=== PATIENT | male | born 1965 | race Two or more races ===

== ENCOUNTER 2025-09-18 12:15 | Inpatient (IN) | payer MEDICARE, MEDICAID ==
[~2025-09-18] VITALS: Ht 177.8 cm; Wt 110.7 kg
--- NOTE | 2025-09-18 13:16 | ECG ---
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
--- NOTE | 2025-09-18 13:48 | ED.PDOC ---
SOB-HPI HPI Comments This is a 59 year old male presenting to the ED with chief complaint of SOB. Patient reports that he has been experiencing SOB with associated palpitations this morning while getting dressed. Patient relays that he has never had this feeling before. Patient denies any chest pain, dizziness, extremity swelling, N/V, cough, or fever. Chief Complaint: Shortness of Breath Time Seen by MD: 13:47 Reviewed notes: Nurses Notes, Medications, Allergies Information Source: Patient, Spouse Mode of Arrival: Ambulatory Severity: Moderate Timing: Hours Duration: Since onset Context: At Rest PE Risk Factors: None History of: None Prehospital treatment: None Modifying Factors: Nothing Associated Signs and Symptoms: None Past Medical History PAST MEDICAL HISTORY: Denies Surgical History: Denies all surgeries Family History Family History: Reviewed,noncontributory to illness Social History Smoker: Non-Smoker Alcohol: Denies ETOH Use Drugs: Denies Drug Use Lives In: Home Constitutional: denies: chills, diaphoresis, fatigue, fever, malaise, sweats, weakness, others EENTM: denies: blurred vision, double vision, ear bleeding, ear discharge, ear drainage, ear pain, ear ringing, eye pain, eye redness, hearing loss, mouth pain, mouth swelling, nasal discharge, nose bleeding, nose congestion, nose pain, photophobia, tearing, throat pain, throat swelling, voice changes, others Respiratory: reports: shortness of breath; denies: cough, hemoptysis, orthopnea, SOB at rest, SOB with excertion, stridor, wheezing, others Cardiovascular: reports: palpitations; denies: chest pain, dizzy spells, diaphoresis, Dyspnea on exertion, edema, irregular heart beat, left arm pain, lightheadedness, PND, syncope, others Gastrointestinal: denies: abdomen distended, abdominal pain, blood streaked bowels, constipated, diarrhea, dysphagia, difficulty swallowing, hematemesis, melena, nausea, poor appetite, poor fluid intake, rectal bleeding, rectal pain, vomiting, others Genitourinary: denies: burning, dysuria, flank pain, frequency, hematuria, incontinence, penile discharge, penile sore, pain, testicle pain, testicle swelling, urgency, others Neurological: denies: dizziness, fainting, headache, left sided numbness, left sided weakness, numbness, paresthesia, pre-existing deficit, right sided numbness, right sided weakness, seizure, speech problems, tingling, tremors, weakness, others Musculoskeletal: denies: back pain, gout, joint pain, joint swelling, muscle pain, muscle stiffness, neck pain, others Integumetry: denies: bruises, change in color, change in hair/nails, dryness, laceration, lesions, lumps, rash, wounds, others Allergic/Immunocompromised: denies: Difficulty Healing, Frequent Infections, Hives, Itching, others Hematologic/Lymphatic: denies: anemia, blood clots, easy bleeding, easy bruising, swollen glands, others Endocrine: denies: excessive hunger, excessive sweating, excessive thirst, excessive urination, flushing, intolerance to cold, intolerance to heat, unexplained weight gain, unexplained weight loss, others Psychiatric: denies: anxiety, bipolar disorder, depression, hopeless, panic disorder, schizophrenia, sleepless, suicidal, others All Other Systems: Reviewed and Negative Physical Exam General Appearance: No Apparent Distress, Normal HEENT: Normal ENT Inspection, Pharynx Normal, TMs Normal Neck: Full Range of Motion, Non-Tender, Normal, Normal Inspection Respiratory: Chest Non-Tender, Lungs Clear, No Accessory Muscle Use, No Respiratory Distress, Normal Breath Sounds Cardiovascular: No Edema, No JVD, No Murmur, No Gallop, Normal Peripheral Pulses, Regular Rate/Rhythm Breast Exam: Deferred Gastrointestinal: No Organomegaly, Non Tender, No Pulsatile Mass, Normal Bowel Sounds, Soft Genitalia: Deferred Pelvic: Deferred Rectal: Deferred Extremities: No calf tenderness, Normal capillary refill, Normal inspection, Normal range of motion, Non-tender, No pedal edema Musculoskeletal : Apperance: Normal Neurologic: Alert, gambling monitor II-XII nml as Tested, No Motor Deficits, Normal Affect, Normal Mood, No Sensory Deficits Cerebellar Function: Normal Reflexes: Normal Skin: Dry, Normal Color, Warm Lymphatic: No Adenopathy EKG EKG : Pulse Rate (adult): 80 [place]: Normal Cardiac Rhythm: PAC's Block: None Hypertrophy: None ST: Normal Was a procedure done? Was a procedure done?: No Differential Dx Differential Diagnosis: Myocardial infarction, PSVT X-Ray, Labs, Meds, VS Vital Signs Date Time Temp Pulse Resp B/P (MAP) Pulse Ox O2 Delivery O2 Flow Rate FiO2 09/18/25 14:46 77 16 98 Room Air* 0 21 09/18/25 14:45 98.0 78 16 150/82 (104) 96 98.0 09/18/25 12:39 80 09/18/25 12:20 97.8 85 20 160/78 95 97.8 Lab Test 09/18/25 15:13 09/18/25 14:09 Range/Units Total Bilirubin Pending Direct Bilirubin Pending Aspartate Amino Transferase (AST) Pending Alanine Aminotransferase (ALT) Pending Alkaline Phosphatase Pending Troponin I High Sensitivity 183 *H 212 *H </=54 ng/L Total Protein Pending Albumin Pending White Blood Count 10.2 4.4-10.8 10^3/uL Red Blood Count 5.67 4.5-5.90 10^6/uL Hemoglobin 15.5 13.5-17.5 g/dL Hematocrit 45.9 41.0-53.0 % Mean Corpuscular Volume 81.0 80.0-100.0 fL Mean Corpuscular Hemoglobin 27.3 L 28.0-32.0 pg Mean Corpuscular Hemoglobin Concent 33.6 32.0-36.0 g/dL Red Cell Distribution Width 17.4 H 11.8-14.3 % Platelet Count 175 140-450 10^3/uL Mean Platelet Volume 6.7 L 6.9-10.8 fL Neutrophils (%) (Auto) 76.7 37.0-80.0 % Lymphocytes (%) (Auto) 10.9 10.0-50.0 % Monocytes (%) (Auto) 11.5 0.0-12.0 % Eosinophils (%) (Auto) 0.2 0.0-7.0 % Basophils (%) (Auto) 0.7 0.0-2.0 % Neutrophils # (Auto) 7.8 1.6-8.6 10 ^3/uL Lymphocytes # (Auto) 1.1 0.4-5.4 10 ^3/uL Monocytes # (Auto) 1.2 0-1.3 10 ^3/uL Eosinophils # (Auto) 0 0-0.8 10 ^3/uL Basophils # (Auto) 0.1 0-0.2 10 ^3/uL Nucleated Red Blood Cells 0.0 % D-Dimer, Quantitative 28.17 H 0.0-0.49 mg/L FEU Sodium Level 142 136-145 mmol/L Potassium Level 4.0 3.5-5.1 mmol/L Chloride Level 103 98-107 mmol/L Carbon Dioxide Level 29 20-31 mmol/L Anion Gap 10 5-15 Blood Urea Nitrogen 15 9-23 mg/dL Creatinine 1.32 H 0.700-1.30 mg/dL Glomerular Filtration Rate Calc 62 >90 mL/min BUN/Creatinine Ratio 11.4 10.0-20.0 Serum Glucose 122 H 74-106 mg/dL Calcium Level 9.9 8.7-10.4 mg/dL B-Type Natriuretic Peptide 23.51 0-100 pg/mL Time of 1ST Reevaluation: 14:46 Reevaluation 1ST: Unchanged Patient Education/Counseling: Diagnosis, Treatment Family Education/Counseling: Diagnosis, Treatment SEPSIS Sepsis Screen Date sepsis recognized/suspect: Sep 18, 2025 Time Sepsis recognized/suspect: 1220 Recent Procedure: No On Antibiotic Therapy: No Respiratory Rate >20: No Heart Rate >90: No Temp<36 C (96.8 F) or >38.3 C: No SBP <90 or MAP <65 mmHG: No New Acute Mental Status Change: No Is the patient on CPAP, BIPAP,: No Physician Orders Electrocardigram (09/18/25 14:14) Electrocardigram (09/18/25 16:14) Chest Xray 1 View (09/18/25 13:42) Troponin-I Hs (09/18/25 15:54) Vital Signs Date Time Temp Pulse Resp B/P (MAP) Pulse Ox O2 Delivery O2 Flow Rate FiO2 09/18/25 14:46 77 16 98 Room Air* 0 21 09/18/25 14:45 98.0 78 16 150/82 (104) 96 98.0 09/18/25 12:39 80 09/18/25 12:20 97.8 85 20 160/78 95 97.8 Laboratory Tests Test 09/18/25 14:09 White Blood Count 10.2 10^3/uL (4.4-10.8) Departure 1 Departure Time of Disposition: 17:00 (This is a 59 year old male presenting to the ED with chief complaint of SOB. Patient denying any current chest pain. Initial EKG does show sinus rhythm, however, has some PACs, could have been the cause of his palpitations. Your possible ACS, however, no chest pain. Patient's high sensitivity troponin is elevated in the 200s, has a heart score of 4. Repeat troponin is stable, downtrending. Patient reporting shortness of breath, however, denies any increased lower extremity edema or orthopnea, BNP is within normal limits. Chest x-ray with no evidence of any increased pulmonary vascular congestion. Does not seem consistent with new onset heart failure. Shortness of breath and positive troponin is screening D-dimer was obtained which came back positive. Patient's duplex ultrasound shows that he has a popliteal DVT. CT angiography has also been ordered to further evaluate to see if he has pu lmonary embolism causing his shortness of breath. In admitted for further workup and management of DVT.) Impression: Primary Impression: Palpitations Additional Impressions: Elevated troponin I level Shortness of breath PAC (premature atrial contraction) Deep venous thrombosis of left popliteal vein Disposition: ADMITTED INPATIENT Condition: Fair Critical Care Note Critical Care Time?: No Stability Stability form required: No Heart Score Heart Score: Heart Score Response (Comments) Value History Moderate Suspicious 1 EKG Normal 0 Age 45-64 1 Risk Factors No known risk factors 0 Troponin >3 x's Normal limit 2 Total 4 I personally scribed for MADHU FERRERA MD ([email or web address]) on 09/18/25 at 13:48. Electronically submitted by [place] ([email or web address]). MADHU FERRERA MD Sep 18, 2025 13:48
--- NOTE | 2025-09-18 14:10 | DVH ---
CHEST RADIOGRAPH Indication: SOB/Palpitations Technique: Single frontal view of the chest was obtained Comparison: None FINDINGS: Lines and Tubes: None Lungs: No focal consolidation. Pleura: No effusion. No pneumothorax. Cardiomediastinal contours: Unremarkable Bones: No acute osseous abnormality. IMPRESSION: No acute cardiopulmonary disease.
[2025-09-18 14:18] LABS: Hematocrit 45.9 % (41.0-53.0); Hemoglobin 15.5 g/dL (13.5-17.5); Mean Corpuscular Hemoglobin 27.3 pg (28.0-32.0); Mean Corpuscular Volume 81.0 fL (80.0-100.0); Nucleated Red Blood Cells % 0.0 %
[2025-09-18 14:28] LABS: Chloride 103 mmol/L (98-107); Potassium 4.0 mmol/L (3.5-5.1); Sodium 142 mmol/L (136-145)
[2025-09-18 14:29] LABS: Anion Gap 10 (5-15); Carbon Dioxide 29 mmol/L (20-31)
[2025-09-18 14:30] LABS: Calcium 9.9 mg/dL (8.7-10.4)
[2025-09-18 14:34] LABS: BUN/Creatinine Ratio 11.4 (10.0-20.0); Blood Urea Nitrogen 15 mg/dL (9-23)
[2025-09-18 14:37] LABS: Glucose 122 mg/dL (74-106)
[2025-09-18 14:46] VITALS: PULSE 77; RESP 16; O2SAT 98
[2025-09-18] MEDS ORDERED: MORPHINE SULFATE INJ 2 MG/ml SYRG IV PRN (16:30)
[2025-09-18] MEDS ORDERED: ENOXAPARIN SOD 40 MG/0.4 ML SYRINGE SC ONE (16:30)
[2025-09-18] MEDS ORDERED: DEXTROSE (50%) 50ML SYRG IV PRN (16:30)
[2025-09-18] MEDS ORDERED: IPRATROPIUM BROM 0.5 MG/2.5ML INH SOL NEB PRN (16:30)
[2025-09-18] MEDS ORDERED: LEVALBUTEROL HCL 1.25 MG/3 ML NEB NEB PRN (16:30)
[2025-09-18] MEDS ORDERED: NITROGLYCERIN 0.4 MG SL TAB SL PRN (16:30)
--- NOTE | 2025-09-18 17:10 | DVHHPRES ---
History of Present Illness Resident Creating Document: SIN BUCKLEY RESIDENT History of Present Illness Patient is a 59-year-old male with a past medical history of hypertension, peripheral artery disease, obstructive sleep apnea on CPAP, legally blind, peripheral neuropathy, insulin-dependent type 2 diabetes mellitus, herpes presented to the ED with a chief complaint of 1 day of sudden onset shortness of breath. Patient reported since the morning today he has had 3-4 episodes of sudden onset shortness of breath where he feels not able to take deep breath, denied cough/phlegm, fever or chills, no recent sick contacts, but reported had associated palpitations during the episodes of shortness of Breath, and also mucus coming up occasionally which is chronic, no change in the color or smell of the sputum. Patient denied any previous episode of shortness of Breath or history of asthma or COPD or congestive heart failure. Patient denied any chest pain. He has also apparently well until yesterday and was able to walk on the treadmill for an hour at 2.5 mph. Since the patient has been in the hospital he reports some improvement would feel short of breath while walking. Denies any lower extremity pain. Past Medical History As per HPI Family History Right eye surgery Past Social History Denies smoking, occasional alcohol, denies any drug use Review of Systems Review of Systems Denies fever, chills, headache No shortness a breath while resting on room air Denies chest pain, palpitations Allergies: Coded Allergies: NO KNOWN ALLERGIES (Unverified , 09/18/25) Medications Current Medications Medications Dose Ordered Sig/Antonio Route Start Time Stop Time Status Last Admin Dose Admin Nitroglycerin 0.4 mg Q5MINP PRN SL 09/18/25 16:30 UNV Morphine Sulfate 2 mg Q30M PRN IV 09/18/25 16:30 UNV Levalbuterol HCl 0.625 mg Q6HP PRN NEB 09/18/25 16:30 UNV Ipratropium [place] 0.5 mg Q6HPRN PRN NEB 09/18/25 16:30 UNV Aspirin 81 mg DAILY PO 09/19/25 10:00 UNV Pentoxifylline 400 mg TID PO 09/18/25 22:00 UNV Lisinopril 30 mg DAILY PO 09/19/25 10:00 UNV Hydrochlorothiazide 25 mg DAILY PO 09/19/25 10:00 UNV Amlodipine Besylate 5 mg HS PO 09/18/25 22:00 UNV Metoprolol Tartrate 12.5 mg BID PO 09/18/25 22:00 UNV Diagnostic Test (Pha) 1 strip ACHS 09/18/25 17:00 UNV Insulin Human Regular ACHS SC 09/18/25 17:00 UNV Dextrose 50 ml UD PRN IV 09/18/25 16:30 UNV Enoxaparin Sodium 40 mg DAILY SC 09/19/25 10:00 UNV Atorvastatin Calcium 40 mg HS PO 09/18/25 22:00 UNV Exam Vital Signs Vital Signs Date Time Temp Pulse Resp B/P (MAP) Pulse Ox O2 Delivery O2 Flow Rate FiO2 09/18/25 14:46 77 16 98 Room Air* 0 21 09/18/25 14:45 98.0 150/82 (104) 98.0 Exam Skin - Patients skin is warm and dry. HEENT - normocephalic, atraumatic, moist mucous membranes. Neck - full ROM, no LAD, no JVD Pulmonary - B/L clear breath sounds without any wheezing or rales cardiovascular - regular S1,S2 heard, no added sounds, no murmurs heard. peripheral pulses normal radial 2+, pedal 1+. GI - soft, obese abdomen. Bowel sounds normoactive Neurological - Patient is A/O X 4 . Bilateral upper extremity strength 5/5, bilateral lower extremity strength 5/5, no facial droop, normal speech, no tremor, no sensory deficiets, legally blind Extremities: Bilateral 1+ edema Labs/Xrays Labs Test 09/18/25 15:13 09/18/25 14:09 Range/Units Troponin I High Sensitivity 183 *H </=54 ng/L White Blood Count 10.2 4.4-10.8 10^3/uL Red Blood Count 5.67 4.5-5.90 10^6/uL Hemoglobin 15.5 13.5-17.5 g/dL Hematocrit 45.9 41.0-53.0 % Mean Corpuscular Volume 81.0 80.0-100.0 fL Mean Corpuscular Hemoglobin 27.3 L 28.0-32.0 pg Mean Corpuscular Hemoglobin Concent 33.6 32.0-36.0 g/dL Red Cell Distribution Width 17.4 H 11.8-14.3 % Platelet Count 175 140-450 10^3/uL Mean Platelet Volume 6.7 L 6.9-10.8 fL Neutrophils (%) (Auto) 76.7 37.0-80.0 % Lymphocytes (%) (Auto) 10.9 10.0-50.0 % Monocytes (%) (Auto) 11.5 0.0-12.0 % Eosinophils (%) (Auto) 0.2 0.0-7.0 % Basophils (%) (Auto) 0.7 0.0-2.0 % Neutrophils # (Auto) 7.8 1.6-8.6 10 ^3/uL Lymphocytes # (Auto) 1.1 0.4-5.4 10 ^3/uL Monocytes # (Auto) 1.2 0-1.3 10 ^3/uL Eosinophils # (Auto) 0 0-0.8 10 ^3/uL Basophils # (Auto) 0.1 0-0.2 10 ^3/uL Nucleated Red Blood Cells 0.0 % Sodium Level 142 136-145 mmol/L Potassium Level 4.0 3.5-5.1 mmol/L Chloride Level 103 98-107 mmol/L Carbon Dioxide Level 29 20-31 mmol/L Anion Gap 10 5-15 Blood Urea Nitrogen 15 9-23 mg/dL Creatinine 1.32 H 0.700-1.30 mg/dL Glomerular Filtration Rate Calc 62 >90 mL/min BUN/Creatinine Ratio 11.4 10.0-20.0 Serum Glucose 122 H 74-106 mg/dL Calcium Level 9.9 8.7-10.4 mg/dL B-Type Natriuretic Peptide 23.51 0-100 pg/mL SEPSIS Sepsis Screen Date sepsis recognized/suspect: Sep 18, 2025 Time Sepsis recognized/suspect: 1220 Recent Procedure: No On Antibiotic Therapy: No Respiratory Rate >20: No Heart Rate >90: No Temp<36 C (96.8 F) or >38.3 C: No SBP <90 or MAP <65 mmHG: No New Acute Mental Status Change: No Is the patient on CPAP, BIPAP,: No Physician Orders Electrocardigram (09/18/25 14:14) Electrocardigram (09/18/25 16:14) Chest Xray 1 View (09/18/25 13:42) Troponin-I Hs (09/18/25 15:54) Admit (09/18/25 16:18) Nitroglycerin Sublingual (Ntrostat Subli (09/18/25 16:30) Morphine Sulfate Injection (09/18/25 16:30) Oxygen By Nasal Cannula (09/18/25 16:18) Stat Ekg For Chest Pain (09/18/25 16:18) Notify Of Changes From Base (09/18/25 16:18) Senior Sales Associate For 24 Hours (09/18/25 16:18) Emergency Dysrhythmia Protocol (09/18/25 16:18) Rapid Influenza A&B (09/18/25 16:18) Covid19 Antigen Stacey (09/18/25 ) Hepatic Panel (09/18/25 16:18) D-Dimer (09/18/25 16:18) Bilat Lower Dvt (09/18/25 16:18) Levalbuterol Hcl (Xopenex Medneb) (09/18/25 16:30) Ipratropium Medneb (Atrovent Medneb) (09/18/25 16:30) Aspirin Tablet (09/19/25 10:00) Echo 2d Mode Cardiac Dop (09/18/25 16:18) Urinalysis (09/18/25 16:18) Drug Screen (09/18/25 16:18) Pentoxifylline Er Tablet (Trental Er Tab (09/18/25 22:00) Lisinopril Tablet (Zestril Tablet) (09/19/25 10:00) Hydrochlorothiazide Tablet (Hydrochlorot (09/19/25 10:00) Amlodipine Tablet (Norvasc Tablet) (09/18/25 22:00) Metoprolol Tartrate Tablet (Lopressor Ta (09/18/25 22:00) Urine Protein/Creatinine Ratio (09/18/25 ) Urine Sodium (09/18/25 16:18) Glucose Blood (Accu-Chek Comfort Curve T (09/18/25 17:00) Insulin R (Human) (Insulin R) (09/18/25 17:00) Dextrose 50% Syringe (09/18/25 16:30) Cardiac Diet-2gna,Lofat,Lochol (09/18/25 Dinner) [facility]Diabetes (09/18/25 Dinner) Enoxaparin Sodium (Lovenox) (09/19/25 10:00) Enoxaparin Sodium (Lovenox) (09/18/25 16:30) Atorvastatin (Lipitor) (09/18/25 22:00) Vital Signs Date Time Temp Pulse Resp B/P (MAP) Pulse Ox O2 Delivery O2 Flow Rate FiO2 09/18/25 14:46 77 16 98 Room Air* 0 21 09/18/25 14:45 98.0 78 16 150/82 (104) 96 98.0 09/18/25 12:39 80 09/18/25 12:20 97.8 85 20 160/78 95 97.8 Laboratory Tests Test 09/18/25 14:09 White Blood Count 10.2 10^3/uL (4.4-10.8) Assessment/Plan Assessment/Plan Shortness of breath likely due to suspected PE Obstructive sleep apnea Right main Pulmonary artery embolism - COVID and influenza pending - chest x-ray shows no acute pulmonary edema - wells score 3, elevated D-dimer - CT angio chest showed right main pulmonary artery PE extending through right lobar artery - started on heparin drip - IR consulted NSTEMI likely type 2 from demand ischemia Hypertensive heart disease with a possible heart failure H/o Peripheral artery disease - 12 lead EKG showed T-wave inversions in inferolateral leads, PAC - continue on antihypertensive medications including lisinopril, amlodipine, hydrochlorothiazide - troponins trended down - echocardiogram pending - continue pentoxifylline for peripheral artery disease Insulin dependent Type 2 diabetes mellitus - sliding insulin scale MI on CKD likely due to VMN - urine studies pending - likely CKD as patient reports GFR around 60 DVT prophylaxis: Lovenox Goals of care discussed with the patient and his for over 19 minutes. Full code Time spent: 36 minutes Plan discussed with Dr. Rosado Plan discussed with: Patient, Spouse My Orders Orders - SIN BUCKLEY RESIDENT Procedure Category Date Status Time Admit ADMIT 09/18/25 Transmitted 16:18 Nitroglycerin PHA 09/18/25 Logged Sublingual (Ntrostat 16:30 Morphine Sulfate PHA 09/18/25 Logged Injection 16:30 Oxygen By Nasal RT 09/18/25 Transmitted Cannula 16:18 Stat Ekg For Chest SHARA 09/18/25 In Process Pain 16:18 Notify Of Changes [facility] 09/18/25 In Process From Base 16:18 Senior Sales Associate For [facility] 09/18/25 In Process 24 Hours 16:18 Emergency Dysrhythmia [facility] 09/18/25 In Process Protocol 16:18 Rapid Influenza A&B LAB 09/18/25 Logged 16:18 Covid19 Antigen [place] LAB 09/18/25 Logged Hepatic Panel LAB 09/18/25 In Process 16:18 D-Dimer LAB 09/18/25 In Process 16:18 Bilat Lower Dvt US 09/18/25 Logged 16:18 Levalbuterol Hcl PHA 09/18/25 Logged (Xopenex Medneb) 16:30 Ipratropium Medneb PHA 09/18/25 Logged (Atrovent Medneb) 16:30 Aspirin Tablet PHA 09/19/25 Logged 10:00 Echo 2d Mode Cardiac US 09/18/25 Logged DOP 16:18 Urinalysis LAB 09/18/25 Logged 16:18 Drug Screen LAB 09/18/25 Logged 16:18 Pentoxifylline Er PHA 09/18/25 Logged Tablet (Trental Er Tab 22:00 Lisinopril Tablet PHA 09/19/25 Logged (Zestril Tablet) 10:00 Hydrochlorothiazide PHA 09/19/25 Logged Tablet (Hydrochlorot 10:00 Amlodipine Tablet PHA 09/18/25 Logged (Norvasc Tablet) 22:00 Metoprolol Tartrate PHA 09/18/25 Logged Tablet (Lopressor Ta 22:00 Urine LAB 09/18/25 Logged Protein/Creatinine Urine Sodium LAB 09/18/25 Logged 16:18 Glucose Blood PHA 09/18/25 Logged (Accu-Chek Comfort 17:00 Insulin R (Human) PHA 09/18/25 Logged (Insulin R) 17:00 Dextrose 50% Syringe PHA 09/18/25 Logged 16:30 Cardiac DIET 09/18/25 Transmitted Diet-2gna,Lofat,Lochol Dinner Consistent DIET 09/18/25 Transmitted Carb(Ccho)Diabetes Dinner Enoxaparin Sodium PHA 09/19/25 Logged (Lovenox) 10:00 Enoxaparin Sodium PHA 09/18/25 Logged (Lovenox) 16:30 Atorvastatin (Lipitor) PHA 09/18/25 Logged 22:00 Date of Service: Sep 18, 2025 Billing Provider: CLAUDY ROSADO MD Common Visit Codes: 42794-[id number] INP/OBS CARE (HIGH) Secondary Visit Codes: [id number] CARE PLAN 30 MINUTES SIN BUCKLEY RESIDENT Sep 18, 2025 17:10 CLAUDY ROSADO MD Sep 18, 2025 22:33
[2025-09-18 17:56] LABS: Alkaline Phosphatase 107.0 U/L (46-116); Total Protein 7.6 g/dL (5.7-8.2)
[2025-09-18 17:57] LABS: Albumin 4.8 g/dL (3.2-4.8); Bilirubin, Direct 0.2 mg/dL (<0.3); Bilirubin, Total 0.8 mg/dL (0.2-1.0)
--- NOTE | 2025-09-18 18:09 | DVH ---
Technique: Real-time ultrasound imaging, with color Doppler and compression of the bilateral common femoral vein, femoral vein, greater saphenous vein, and popliteal vein. Indication: lower ext swelling L>R Comparison: None Findings: In the left lower extremity, the left common femoral superficial femoral veins demonstrate color flow and compressibility. The left popliteal vein is noncompressible and contains occlusive thrombus. There is normal compressibility and flow augmentation in all of the right lower extremity imaged deep veins. There are no filling defects in the right lower extremity. Impression: Occlusive deep vein thrombosis within the left popliteal vein. Findings were communicated to Dr. Vallejo by the scanning technologist at 5:57 p.m.
[2025-09-18 18:54] LABS: Alanine Aminotransferase 44.0 U/L (7-40)
--- NOTE | 2025-09-18 18:58 | DVH ---
EXAM: CT CT ANGIO CHEST CONTRAST HISTORY: Wells score 3, SOB, highd-dim, NSTEMI , suspicous for PE TECHNIQUE: CT angiogram was performed. CT scans at this facility use dose modulation, iterative reconstruction, and/or weight based dosing when appropriate to reduce radiation dose to as low as reasonably achievable. Coronal and sagittal reformations and maximum intensity projection images were created from the transaxial source data by the certified nuclear medicine technologist and workstation, as well as 3-D volume rendered images with MIPs. COMPARISON: XY CHEST XRAY 1 VIEW on DOS: 09/18/25 FINDINGS: [LOWER NECK]: Unremarkable [LYMPH NODES/MEDIASTINUM]: No abnormal lymph nodes by CT size criteria [CARDIOVASCULAR]: Normal cardiac size. No pericardial effusion. No aneurysmal dilatation of the great vessels. Coronary artery calcifications. [PULMONARY ARTERIES]: Pulmonary emboli involving the right distal main pulmonary artery extending through the right interlobar artery. Propagating through the right posterior segmental to subsegmental pulmonary arteries. Additional involvement of the left upper apical segmental artery and likely subsegmental arteries. Additional involvement of the left lower lobe segmental to subsegmental pulmonary arteries. Normal caliber of the main pulmonary artery. No evidence of elevated right heart pressures. no ventricular heart strain [UPPER ABDOMEN]: Unremarkable. [MUSCULOSKELETAL]: No acute fracture or aggressive focal osseous lesion. Multilevel degenerative change of the visualized spine. [CHEST WALL]: Unremarkable. [LUNG PARENCHYMA/PLEURAL SPACE]: No consolidation, suspicious focal airspace opacity, or suspicious nodules. No pleural effusion or pneumothorax. IMPRESSION: 1. Bilateral pulmonary emboli with involvement of the right distal main pulmonary artery extending through the right interlobar artery. 2. No evidence of elevated right heart pressures.
[2025-09-18 19:00] VITALS: O2SAT 95
[2025-09-18] MEDS: IOHEXOL 350 MG/ML 100ML IJ ONE (19:16)
[2025-09-18 19:47] LABS: Hematocrit 47.3 % (41.0-53.0); Hemoglobin 15.9 g/dL (13.5-17.5); Mean Corpuscular Hemoglobin 27.3 pg (28.0-32.0); Mean Corpuscular Volume 81.5 fL (80.0-100.0); Nucleated Red Blood Cells % 0.2 %
[2025-09-18 19:53] LABS: INR 0.97 (0.9-1.15); Partial Thromboplastin Time 26.5 SEC (24.5-34.5); Prothrombin Time 10.3 sec (9.3-11.8)
[2025-09-18 20:16] VITALS: PULSE 88; RESP 15; O2SAT 93
[2025-09-18 20:30] VITALS: BP 158/85; PULSE 97; RESP 16; TEMP 97.9; O2SAT 95
[2025-09-18] MEDS: ACCU-CHEK COMFORT CURVE STRIP VI SCH (20:30)
[2025-09-18] MEDS: InsuLIN REG 1unit/0.01ml Soln (100units/ml) SC SCH (20:37)
[2025-09-18] MEDS: FUROSEMIDE 40 MG/4 ML VIAL IV ONE (20:46)
[2025-09-18 21:19] LABS: COVID19 ANTIGEN SOFIA FIA NEGATIVE (NEGATIVE)
[2025-09-18] MEDS: HEPARIN SODIUM (PORCINE) 5000 UNITS/ML 1ML VIAL IV ONE (21:21)
[2025-09-18] MEDS: HEPARIN DRIP/D5W 100UNITS/ML 250 ML IV SCH (21:30)
[2025-09-18] MEDS: ATORVASTATIN 20 MG TAB PO SCH (21:59)
[2025-09-18] MEDS ORDERED: METOPROLOL TARTRATE 25 MG TAB PO SCH (22:00)
[2025-09-18] MEDS: PENTOXIFYLLINE 400 MG ER TAB PO SCH (22:00)
[2025-09-19] VITALS (11 sets, daily range): BP systolic 106–148; BP diastolic 64–81; PULSE 57–97; RESP 15–18; TEMP 97.4–98.1; O2SAT 95–100
[2025-09-19] MEDS ORDERED: AMLO1TAB23 PO (00:48)
[2025-09-19] MEDS ORDERED: ASPI-543 PO (00:48)
[2025-09-19] MEDS ORDERED: LISI40TA16 PO (00:48)
[2025-09-19] MEDS ORDERED: HYDR25TA5 PO (00:48)
[2025-09-19] MEDS ORDERED: MET25T PO (00:48)
[2025-09-19] MEDS ORDERED: ATOR40TA52 PO (00:48)
[2025-09-19] MEDS ORDERED: ACYC1TAB2 PO (00:48)
[2025-09-19 04:59] LABS: Hematocrit 40.8 % (41.0-53.0); Hemoglobin 13.6 g/dL (13.5-17.5); Mean Corpuscular Hemoglobin 26.9 pg (28.0-32.0); Mean Corpuscular Volume 80.5 fL (80.0-100.0); Nucleated Red Blood Cells % 0.1 %
[2025-09-19 05:10] LABS: Chloride 101 mmol/L (98-107); Potassium 3.9 mmol/L (3.5-5.1)
[2025-09-19 05:11] LABS: Anion Gap 9 (5-15); Carbon Dioxide 26 mmol/L (20-31)
[2025-09-19 05:12] LABS: Calcium 9.3 mg/dL (8.7-10.4)
[2025-09-19 05:17] LABS: BUN/Creatinine Ratio 16.3 (10.0-20.0); Blood Urea Nitrogen 20 mg/dL (9-23)
[2025-09-19 05:18] LABS: Glucose 189 mg/dL (74-106); Sodium 136 mmol/L (136-145)
[2025-09-19 05:33] LABS: Prothrombin Time 11.6 sec (9.3-11.8)
[2025-09-19 05:34] LABS: INR 1.11 (0.9-1.15)
[2025-09-19 05:36] LABS: Partial Thromboplastin Time > 139.0 SEC (24.5-34.5)
[2025-09-19] MEDS: HEPARIN DRIP/D5W 100UNITS/ML 250 ML IV SCH ×2 (06:50→15:52)
[2025-09-19 07:52] LABS: Protein, Urine 6.3 mg/dL (1-14)
[2025-09-19 08:00] LABS: Amphetamine Screen, Urine Neg (NEGATIVE); Barbiturate Scree,Urine Neg (NEGATIVE); Benzodiazephine Screen, Urine Neg (NEGATIVE); Cannabinoid Screen, Urine Neg (NEGATIVE); Cocaine Screen, Urine Neg (NEGATIVE); Opiate Scree,Urine Neg (NEGATIVE); Phencyclidine Screen, Urine Neg (NEGATIVE)
[2025-09-19 08:12] LABS: Urine Protein, UAD Negative (Negative)
[2025-09-19] MEDS: LISINOPRIL 20 MG TAB PO SCH (09:29)
[2025-09-19] MEDS: hydroCHLOROthiazide 25 MG TAB PO SCH (09:29)
[2025-09-19] MEDS ORDERED: ENOXAPARIN SOD 40 MG/0.4 ML SYRINGE SC SCH (10:00)
--- NOTE | 2025-09-19 10:52 | DVHINCON2 ---
Date Seen: Sep 19, 2025 Referring Physician MD Kip Reason for Consultation NSTEMI History of Present Illness This is a 59-year-old man who presented to the emergency room with a chief complaint of shortness of breath. The patient reports he experienced a sudden onset of shortness of breath associated with some palpitations while he was getting dressed yesterday morning. Denies chest pain, dizziness, or syncopal events. Has been diagnosed with a left lower extremity DVT and right-sided PE. States he walks on a treadmill for approximately an hour on daily basis but sits the rest of the day as his blindness limits his amount of activity. Denies recent travel by car or airplane. Denies history of smoking cigarettes. Denies a previous history of blood clots. Significant medical history includes hypertension, dyslipidemia, peripheral arterial disease, obstructive sleep apnea on CPAP HS, peripheral neuropathy, insulin-dependent diabetes mellitus, herpes, legally blindness, and obesity. Past Medical History Past medical history reviewed. No other significant than mentioned above. Past Surgical History Right eye Family History: Patient reports no known family medical history. Family History Family history reviewed. Social History Denies the use of illicit drugs, alcohol, or tobacco use. Allergies: Coded Allergies: NO KNOWN ALLERGIES (Unverified , 09/18/25) Home Meds Reported Medications Aspirin (Aspir-Low) 81 Mg Tab, 81 MG PO DAILY for 30 Days, MG 09/19/25 Metoprolol Tartrate (Lopressor) 25 Mg Tb, 1 TAB PO DAILY 09/19/25 Hctz (Hydrochlorothiazide) 25 Mg Tab, 1 TAB PO DAILY 09/19/25 Atorvastatin Calcium (ATORVASTATIN CALCIUM) 40 Mg Tab, 1 TAB PO DAILY 09/19/25 Lisinopril (Lisinopril) 40 Mg Tab, 1 TAB PO DAILY 09/19/25 Amlodipine Besylate (Amlodipine Besylate) 10 Mg Tab, 1 TAB PO DAILY 09/19/25 Acyclovir (Acyclovir) 400 Mg Tab, 1 TAB PO TID 09/19/25 Home Meds Home medications reviewed. Current Medications Current Medications Medications (Trade) Dose Ordered Sig/Antonio Route PRN Reason Start Time Stop Time Status Last Admin Nitroglycerin (Ntrostat Sublingual) 0.4 mg Q5MINP PRN SL FOR CHEST PAIN 09/18/25 16:30 Morphine Sulfate 2 mg Q30M PRN IV FOR CHEST PAIN 09/18/25 16:30 Levalbuterol HCl (Xopenex Medneb) 0.625 mg Q6HP PRN NEB SHORTNESS OF BREATH 09/18/25 16:30 Ipratropium [place] (Atrovent Medneb) 0.5 mg Q6HPRN PRN NEB SHORTNESS OF BREATH 09/18/25 16:30 Aspirin 81 mg DAILY PO 09/19/25 10:00 09/19/25 09:29 Pentoxifylline (TRENtal ER Tablet) 400 mg TID PO 09/18/25 22:00 09/19/25 05:57 Lisinopril (Zestril Tablet) 30 mg DAILY PO 09/19/25 10:00 09/19/25 09:29 Hydrochlorothiazide (hydroCHLOROthiazide TABLET) 25 mg DAILY PO 09/19/25 10:00 09/19/25 09:29 Amlodipine Besylate (Norvasc Tablet) 5 mg HS PO 09/18/25 22:00 09/18/25 21:58 Metoprolol Tartrate (Lopressor Tablet) 12.5 mg BID PO 09/18/25 22:00 09/18/25 17:04 DC Diagnostic Test (Pha) (Accu-Chek Comfort Curve T) 1 strip ACHS 09/18/25 17:00 09/19/25 05:57 Insulin Human Regular (InsuLIN R) ACHS SC 09/18/25 17:00 Dextrose 50 ml UD PRN IV Blood Sugar LESS THAN 60 09/18/25 16:30 Enoxaparin Sodium (Lovenox) 40 mg DAILY SC 09/19/25 10:00 09/18/25 20:25 DC Atorvastatin Calcium (Lipitor) 40 mg HS PO 09/18/25 22:00 09/18/25 21:59 Heparin Sodium/ Dextrose 250 ml @ 20 mls/hr [id number] IV 09/18/25 20:30 09/19/25 05:43 DC 09/18/25 21:30 Heparin Sodium/ Dextrose 250 ml @ 17 mls/hr [id number] IV 09/19/25 06:45 09/19/25 06:50 Review of Systems Constitutional: No symptom reported Ears, Nose, & Throat: No symptom reported Eyes: No symptom reported Neurological: No symptoms reported Pulmonary/Respiratory: SOB Cardiovascular: No symptom reported Gastrointestinal: No symptom reported Genitourinary: No symptom reported Musculoskeletal: No symptom reported Skin: No symptom reported Psychiatric: No symptom reported Endocrine: No symptom reported Hemotologic/Lymphatic: No symptom reported Vital Signs Vital Signs Date Time Temp Pulse Resp B/P (MAP) Pulse Ox O2 Delivery O2 Flow Rate FiO2 09/19/25 09:29 110/70 09/19/25 09:00 98.1 97 16 99 98.1 09/19/25 08:00 Nasal Cannula* 2 28 Physical Exam General Appearance: Cooperative. Well developed. Obese. In no acute distress Head Exam: Normal inspection Neck Exam: Normal inspection. Non-tender. Normal alignment Pulmonary/Respiratory: Chest non-tender. Clear bilateral breath sounds Cardiovascular/Chest: Regular rate and rhythm. S1, S2. No murmurs. No JVD. Peripheral Pulses: 2+ Radial (R). 2+ Radial (L). 2+ Pedal (R). 2+ Pedal (L) Abdominal Exam: Normal bowel sounds Ankle Exam: Negative ankle edema Lower extremities: Negative lower extremity edema Neuro/Mental Status: A&O x4. Coherent Thoughts/Psych: Normal thought pattern. Appropriate mood and affect. Good judgement and insight Appearance: In no acute distress Skin Exam: Hyperpigmented BLEs Labs/Diagnostic Data Labs Test 09/19/25 06:30 09/19/25 05:55 09/19/25 04:00 09/18/25 20:25 Range/Units Urine Color Light-yellow Yellow Urine Clarity Clear Clear Urine pH 6.0 5.0-9.0 Urine Specific Evans 1.017 1.001-1.035 Urine Protein Negative Negative Urine Ketones Negative Negative Urine Blood 1+ H Negative /uL Urine Nitrite Negative Negative Urine Bilirubin Negative Negative Urine Urobilinogen Normal Negative mg/dL Urine Leukocyte Esterase Negative Negative /uL Urine RBC 3 0 - 3 /hpf Urine Microscopic WBC < 1 0-3 /HPF Urine Squamous Epithelial Cells None seen <5 /hpf Urine Bacteria None seen None Seen /hpf Urine Creatinine 60.76 30.0-125.0 mg/dL Urine Protein/Creatinine Ratio 0.10 Urine Sodium 61 40-220 mmol/L Urine Glucose 4+ H Normal mg/dL Urine Total Protein 6.3 1-14 mg/dL Urine Opiates Screen Neg NEGATIVE Urine Fentanyl Screen Neg NEGATIVE Urine Barbiturates Screen Neg NEGATIVE Urine Phencyclidine Screen Neg NEGATIVE Urine Amphetamines Screen Neg NEGATIVE Urine Benzodiazepines Screen Neg NEGATIVE Urine Cocaine Screen Neg NEGATIVE Urine Cannabinoids Screen Neg NEGATIVE POC Glucose 159 H 70-106 mg/dl White Blood Count 9.3 4.4-10.8 10^3/uL Red Blood Count 5.06 4.5-5.90 10^6/uL Hemoglobin 13.6 13.5-17.5 g/dL Hematocrit 40.8 #L 41.0-53.0 % Mean Corpuscular Volume 80.5 80.0-100.0 fL Mean Corpuscular Hemoglobin 26.9 L 28.0-32.0 pg Mean Corpuscular Hemoglobin Concent 33.4 32.0-36.0 g/dL Red Cell Distribution Width 16.9 H 11.8-14.3 % Platelet Count 150 140-450 10^3/uL Mean Platelet Volume 6.7 L 6.9-10.8 fL Neutrophils (%) (Auto) 70.9 37.0-80.0 % Lymphocytes (%) (Auto) 17.2 10.0-50.0 % Monocytes (%) (Auto) 11.0 0.0-12.0 % Eosinophils (%) (Auto) 0.3 0.0-7.0 % Basophils (%) (Auto) 0.6 0.0-2.0 % Neutrophils # (Auto) 6.6 1.6-8.6 10 ^3/uL Lymphocytes # (Auto) 1.6 0.4-5.4 10 ^3/uL Monocytes # (Auto) 1.0 0-1.3 10 ^3/uL Eosinophils # (Auto) 0 0-0.8 10 ^3/uL Basophils # (Auto) 0.1 0-0.2 10 ^3/uL Nucleated Red Blood Cells 0.1 % Prothrombin Time 11.6 9.3-11.8 sec Prothrombin Time INR 1.11 0.9-1.15 Activated Partial Thromboplast Time > 139.0 *H 24.5-34.5 SEC Sodium Level 136 # 136-145 mmol/L Potassium Level 3.9 3.5-5.1 mmol/L Chloride Level 101 98-107 mmol/L Carbon Dioxide Level 26 20-31 mmol/L Anion Gap 9 5-15 Blood Urea Nitrogen 20 9-23 mg/dL Creatinine 1.23 0.700-1.30 mg/dL Glomerular Filtration Rate Calc 68 >90 mL/min BUN/Creatinine Ratio 16.3 10.0-20.0 Serum Glucose 189 H 74-106 mg/dL Calcium Level 9.3 8.7-10.4 mg/dL Influenza Type A Antigen Negative Negative Influenza Type B Antigen Negative Negative SARS-CoV-2 Antigen (Rapid) Negative NEGATIVE Test 09/18/25 17:00 09/18/25 15:13 09/18/25 14:09 Range/Units Troponin I High Sensitivity 184 *H </=54 ng/L Total Bilirubin 0.8 0.2-1.0 mg/dL Direct Bilirubin 0.2 <0.3 mg/dL Aspartate Amino Transferase (AST) 39 13-40 U/L Alanine Aminotransferase (ALT) 44 H 7-40 U/L Alkaline Phosphatase 107 46-116 U/L Total Protein 7.6 5.7-8.2 g/dL Albumin 4.8 3.2-4.8 g/dL D-Dimer, Quantitative 28.17 H 0.0-0.49 mg/L FEU B-Type Natriuretic Peptide 23.51 0-100 pg/mL Assessment Bilateral pulmonary emboli Left lower extremity DVT Hypertension Dyslipidemia Insulin-dependent diabetes mellitus Legally blindness Obesity * CT angio chest with contrast: Bilateral pulmonary emboli with involvement of the right distal main pulmonary artery extending through the right interlobar artery. No evidence of elevated right heart pressures * Bilateral lower extremity DVT: Occlusive deep vein thrombosis within the left popliteal vein * 12 lead electrocardiogram x 1: Sinus rhythm with premature atrial contractions and nonspecific T-wave inversion to lateral leads * Troponin levels peaked at 200s ng/L * TTE pending Plan/Recommendation (Dr. Caro) Plan: Continue heparin drip per pharmacy protocol. Continue radiologist recom mendations for possible thrombectomy. Preliminary transthoracic echocardiogram revealed a preserved LV function with no evidence of right heart strain. Post- interventional procedures, transition to DOAC therapy with Eliquis 10 mg BID for the first 7 days then 5 mg BID for at least 6 months. Follow-up in the outpatient setting with a primary general manager land department within 3-4 weeks post-discharge. Encouraged on ambulation and to increase activity. There is no further cardiac workup indicated at this time. Kindly call if in need of any further recommendations. Thank you for allowing us to participate in this patient's care. This medical document was created using an electronic medical record system with voice recognition software and computerized dictation system. Although this document has been carefully reviewed, there might still be some phonetic and typographical errors. Occasional wrong-word or ``sound-alike substitutions may have occurred due to the inherent limitations of voice recognition software. These areas are purely typographical due to imperfections of the software programs and do not reflect any compromise in the patient's medical care. Please read the chart carefully and recognize, using context, where these substitutions have occurred. Plan discussed with: Patient, Daughter, Other NYHA Physical activity limitations: NA Date of Service: Sep 19, 2025 Billing Provider: VIVEK PINTO Cardiology Common Codes: [id number] INP/OBS CARE (High) VIVEK PINTO Sep 19, 2025 10:52
--- NOTE | 2025-09-19 17:12 | CONS ---
Pharmacy Clinical Information: HEPARIN PER PHARMACY SPOKE TO CHUCHO Bales REGARDING heparin dose change Current dose: 1700 units/hr CURRENT aPTT: > 139 on 09/19/2025 at 13:16 hold heparin drip 1 hr heparin drip was held at 14:11 on 09/19/2025 Restart heparin drip rate (new dose): 1400 units/hr Date and time new dose started: 09/19/2025 at 15:52 Next aPTT: 09/19/2025 at 22:00 CHUCHO Bales READ BACK NEW DOSE: 1400 UNITS/HR SILVIO Penny Sep 19, 2025 17:12
--- NOTE | 2025-09-19 17:27 | DVHPNRES ---
Progress Note Date Seen: Sep 19, 2025 Resident Creating Document: GARETT VILLA RESIDENT Medical Necessity Reason Pt with a Central, PICC or Fol: No Subjective Review of Systems Maximo Hewitt is a 59-year old male past medical history of hypertension, CAD, obstructive sleep apnea on CPAP, legal blindness, peripheral neuropathy, insulin-dependent type 2 diabetes mellitus and herpes presented to the ED with a chief complaint of shortness of breath. The patient reported he had an episode of shortness of breath 2 days back when he was getting dressed, followed by 2 more episodes of sudden shortness of breath lasting 1-2 minutes each. He denied any chest pain or chest tightness, but reported having palpitations along with the shortness of breath. The patient mentions he walks on the treadmill hour at 2.5 mph every day. D- Dimer on admission was 28.17. Tropes were 212, 183, 184. CT angiography revealed bilateral pulmonary emboli and DVT scan revealed DVT in left popliteal vein. The patient was started on heparin drip. Past medical history:hypertension, CAD, obstructive sleep apnea on CPAP, legal blindness, peripheral neuropathy, insulin-dependent type 2 diabetes mellitus and herpes Past surgical history: Surgery on both eyes Social & Personal history: Lives at home with family, denies smoking, drug use, occasional alcohol use Allergies: No known allergies Patient seen and examined at bedside. Patient is alert and oriented to time, place person and responding to all questions. Patient is on 2 L oxygen, with no shortness of breath. Eyes: No Pain, No Vision change, No Conjunctivae inflammation, No Eyelid inflammation, No Redness ENT: No Ear pain, No Ear discharge, No Nose pain, No Nose discharge, No Nose congestion, No Mouth pain, No Mouth swelling, No Throat pain, No Throat swelling Cardiovascular: No Chest Pain, No Palpitations, No Orthopnea, No Paroxysmal No Dyspnea, No Edema, No Lt Headedness Respiratory: No Cough, No Dry, No Shortness of breath, No SOB with exertion, No Wheezing, No Hemoptysis, No Pleuritic Pain, No Sputum Gastrointestinal: No Nausea, No Vomiting, No Abdominal Pain, No Diarrhea, No Constipation, No Melena, No Hematochezia Genitourinary: No Dysuria, No Frequency, No Incontinence, No Hematuria, No Retention Objective vital signs Vital Sign Date Time Temp Pulse Resp B/P (MAP) Pulse Ox O2 Delivery O2 Flow Rate FiO2 09/19/25 13:00 97.7 84 16 145/72 (96) 98 97.7 09/19/25 08:00 Nasal Cannula* 2 28 Total Intake and Output 09/18/25 09/18/25 09/19/25 15:00 23:00 07:00 Intake Total 490 ml Output Total 1000 ml Balance -510 ml medications Current Medications Medications Dose Ordered Sig/Antonio Route Start Time Stop Time Status Last Admin Dose Admin Nitroglycerin 0.4 mg Q5MINP PRN SL 09/18/25 16:30 Morphine Sulfate 2 mg Q30M PRN IV 09/18/25 16:30 Levalbuterol HCl 0.625 mg Q6HP PRN NEB 09/18/25 16:30 Ipratropium [place] 0.5 mg Q6HPRN PRN NEB 09/18/25 16:30 Aspirin 81 mg DAILY PO 09/19/25 10:00 09/19/25 09:29 81 MG Pentoxifylline 400 mg TID PO 09/18/25 22:00 09/19/25 05:57 400 MG Lisinopril 30 mg DAILY PO 09/19/25 10:00 09/19/25 09:29 30 MG Hydrochlorothiazide 25 mg DAILY PO 09/19/25 10:00 09/19/25 09:29 25 MG Amlodipine Besylate 5 mg HS PO 09/18/25 22:00 09/18/25 21:58 5 MG Diagnostic Test (Pha) 1 strip ACHS 09/18/25 17:00 09/19/25 05:57 1 STRIP Insulin Human Regular ACHS SC 09/18/25 17:00 Dextrose 50 ml UD PRN IV 09/18/25 16:30 Atorvastatin Calcium 40 mg HS PO 09/18/25 22:00 09/18/25 21:59 40 MG Heparin Sodium/ Dextrose 250 ml @ 14 mls/hr [id number] IV 09/19/25 15:11 09/19/25 15:52 14 MLS/HR Examination General Appearance: Cooperative. Well developed. Well nourished. NAD Head Exam: Normal inspection Neck Exam: Normal inspection. Non-tender. Normal alignment Pulmonary/Respiratory: Chest non-tender. Clear bilateral breath sounds, no crackles, no wheezing. Cardiovascular/Chest: Regular rate and rhythm. No murmurs. No JVD. Peripheral Pulses: 2+ Radial (R). 2+ Radial (L). 2+ Pedal (R). 2+ Pedal (L) Abdominal Exam: Normal bowel sounds. Soft. normal abdomen, no visible veins, Nontender. No hepatospenomegaly. No masses Ankle Exam: Negative ankle edema Lower extremities: bilateral 1+ lower extremity edema Neuro/Mental Status: A&O x4. Coherent. Thoughts/Psych: Normal thought pattern. Appropriate mood and affect. Good judgement and insight Skin Exam: Normal inspection. Normal color. Warm. Dry laboratory and microbiology Laboratory Tests 09/19/25 04:00 Test 09/19/25 04:00 Range/Units Serum Glucose 189 H 74-106 mg/dL Labs and/or images reviewed: Labs reviewed by me, Image(s) reviewed by me Problem List/Assessment/Plan Problem List/Assessment/Plan # Acute hypoxic respiratory failure # Acute Shortness of breath, likely due to PE # Obstructive sleep apnea # Right main Pulmonary artery embolism - COVID and influenza negative - chest x-ray shows no acute pulmonary edema - wells score 3, elevated D-dimer - CT angio chest showed right main pulmonary artery PE extending through right lobar artery - started on heparin drip, transition to DOAC therapy with Eliquis 10 mg BID for the first 7 days then 5 mg BID for at least 6 months - IR consulted -cardiology- transition to DOAC therapy with Eliquis 10 mg BID for the first 7 days then 5 mg BID for at least 6 months # NSTEMI likely type 2 from demand ischemia # Hypertensive heart disease with a possible heart failure # H/o Peripheral artery disease - 12 lead EKG showed T-wave inversions in inferolateral leads, PAC - continue on antihypertensive medications including lisinopril, amlodipine, hydrochlorothiazide - troponins trended down 212>183>184 - echocardiogram pending - continue pentoxifylline for peripheral artery disease # Insulin dependent Type 2 diabetes mellitus - home insulin pump # MI on CKD likely due to VMN - FeNa 0.9% - likely CKD as patient reports GFR around 60 DVT prophylaxis: Lovenox Goals of care discussed with the patient and his for >23 minutes,Full code Plan discussed with Dr. Rosado Plan discussed with: Patient, Spouse, Daughter Date of Service: Sep 19, 2025 Billing Provider: CLAUDY ROSADO MD Common Visit Codes: [id number] INP/OBS CARE(HIGH) GARETT VILLA RESIDENT Sep 19, 2025 17:27 CLAUDY ROSADO MD Sep 19, 2025 18:25
[2025-09-19 22:55] LABS: INR 1.02 (0.9-1.15); Prothrombin Time 10.8 sec (9.3-11.8)
[2025-09-19 23:07] LABS: Partial Thromboplastin Time 120.1 SEC (24.5-34.5)
--- NOTE | 2025-09-19 23:22 | DVHINCON2 ---
Date Seen: Sep 19, 2025 Referring Physician MD Kip Reason for Consultation NSTEMI History of Present Illness This is a 59-year-old man with a past medical history of hypertension, dyslipidemia, peripheral arterial disease, obstructive sleep apnea on CPAP HS, peripheral neuropathy, insulin-dependent diabetes mellitus, herpes, legally blindness, and obesity who presented to the emergency room with a complaint of shortness of breath. The patient reports he experienced a sudden onset of shortness of breath associated with some palpitations while he was getting dressed yesterday morning. Denies chest pain, dizziness, or syncopal events. Has been diagnosed with a left lower extremity DVT and right-sided PE. States he walks on a treadmill for approximately an hour on daily basis but sits the rest of the day as his blindness limits his amount of activity. Denies recent travel by car or airplane. Denies history of smoking cigarettes. Denies a previous history of blood clots. Chest x-ray shows NAD. Patient was admitted to the hospital. I am asked to consult on this patient. Past Medical History Past medical history reviewed. No other significant than mentioned above. Past Surgical History Right eye Family History: Patient reports no known family medical history. Allergies: Coded Allergies: NO KNOWN ALLERGIES (Unverified , 09/18/25) Home Meds Reported Medications Aspirin (Aspir-Low) 81 Mg Tab, 81 MG PO DAILY for 30 Days, MG 09/19/25 Metoprolol Tartrate (Lopressor) 25 Mg Tb, 1 TAB PO DAILY 09/19/25 Hctz (Hydrochlorothiazide) 25 Mg Tab, 1 TAB PO DAILY 09/19/25 Atorvastatin Calcium (ATORVASTATIN CALCIUM) 40 Mg Tab, 1 TAB PO DAILY 09/19/25 Lisinopril (Lisinopril) 40 Mg Tab, 1 TAB PO DAILY 09/19/25 Amlodipine Besylate (Amlodipine Besylate) 10 Mg Tab, 1 TAB PO DAILY 09/19/25 Acyclovir (Acyclovir) 400 Mg Tab, 1 TAB PO TID 09/19/25 Current Medications Current Medications Medications (Trade) Dose Ordered Sig/Antonio Route PRN Reason Start Time Stop Time Status Last Admin Nitroglycerin (Ntrostat Sublingual) 0.4 mg Q5MINP PRN SL FOR CHEST PAIN 09/18/25 16:30 Morphine Sulfate 2 mg Q30M PRN IV FOR CHEST PAIN 09/18/25 16:30 Levalbuterol HCl (Xopenex Medneb) 0.625 mg Q6HP PRN NEB SHORTNESS OF BREATH 09/18/25 16:30 Ipratropium [place] (Atrovent Medneb) 0.5 mg Q6HPRN PRN NEB SHORTNESS OF BREATH 09/18/25 16:30 Aspirin 81 mg DAILY PO 09/19/25 10:00 09/19/25 09:29 Pentoxifylline (TRENtal ER Tablet) 400 mg TID PO 09/18/25 22:00 09/19/25 05:57 Lisinopril (Zestril Tablet) 30 mg DAILY PO 09/19/25 10:00 09/19/25 09:29 Hydrochlorothiazide (hydroCHLOROthiazide TABLET) 25 mg DAILY PO 09/19/25 10:00 09/19/25 09:29 Amlodipine Besylate (Norvasc Tablet) 5 mg HS PO 09/18/25 22:00 09/18/25 21:58 Metoprolol Tartrate (Lopressor Tablet) 12.5 mg BID PO 09/18/25 22:00 09/18/25 17:04 DC Diagnostic Test (Pha) (Accu-Chek Comfort Curve T) 1 strip ACHS 09/18/25 17:00 09/19/25 05:57 Insulin Human Regular (InsuLIN R) ACHS SC 09/18/25 17:00 Dextrose 50 ml UD PRN IV Blood Sugar LESS THAN 60 09/18/25 16:30 Enoxaparin Sodium (Lovenox) 40 mg DAILY SC 09/19/25 10:00 09/18/25 20:25 DC Atorvastatin Calcium (Lipitor) 40 mg HS PO 09/18/25 22:00 09/18/25 21:59 Heparin Sodium/ Dextrose 250 ml @ 20 mls/hr [id number] IV 09/18/25 20:30 09/19/25 05:43 DC 09/18/25 21:30 Heparin Sodium/ Dextrose 250 ml @ 17 mls/hr [id number] IV 09/19/25 06:45 09/19/25 06:50 Review of Systems Constitutional: No symptom reported Ears, Nose, & Throat: No symptom reported Eyes: No symptom reported Neurological: No symptoms reported Pulmonary/Respiratory: SOB Cardiovascular: No symptom reported Gastrointestinal: No symptom reported Genitourinary: No symptom reported Musculoskeletal: No symptom reported Skin: No symptom reported Psychiatric: No symptom reported Endocrine: No symptom reported Hemotologic/Lymphatic: No symptom reported Vital Signs Vital Signs Date Time Temp Pulse Resp B/P (MAP) Pulse Ox O2 Delivery O2 Flow Rate FiO2 09/19/25 13:00 97.7 84 16 145/72 (96) 98 97.7 09/19/25 08:00 Nasal Cannula* 2 28 Physical Exam GENERAL: Alert and oriented x 3. No acute distress. EYES: PERRL, EOMI. Anicteric. HENT: Moist mucous membranes. LUNGS: Clear to auscultation bilaterally. CARDIOVASCULAR: Regular rate and rhythm. ABDOMEN: Soft, nontender and nondistended. EXTREMITIES: No edema. NEUROLOGIC: No focal neurological deficits. SKIN: Warm, dry. Labs/Diagnostic Data Labs Test 09/19/25 13:16 09/19/25 06:30 09/19/25 05:55 09/19/25 04:00 Range/Units Activated Partial Thromboplast Time > 139.0 *H 24.5-34.5 SEC Urine Color Light-yellow Yellow Urine Clarity Clear Clear Urine pH 6.0 5.0-9.0 Urine Specific [place] 1.017 1.001-1.035 Urine Protein Negative Negative Urine Ketones Negative Negative Urine Blood 1+ H Negative /uL Urine Nitrite Negative Negative Urine Bilirubin Negative Negative Urine Urobilinogen Normal Negative mg/dL Urine Leukocyte Esterase Negative Negative /uL Urine RBC 3 0 - 3 /hpf Urine Microscopic WBC < 1 0-3 /HPF Urine Squamous Epithelial Cells None seen <5 /hpf Urine Bacteria None seen None Seen /hpf Urine Creatinine 60.76 30.0-125.0 mg/dL Urine Protein/Creatinine Ratio 0.10 Urine Sodium 61 40-220 mmol/L Urine Glucose 4+ H Normal mg/dL Urine Total Protein 6.3 1-14 mg/dL Urine Opiates Screen Neg NEGATIVE Urine Fentanyl Screen Neg NEGATIVE Urine Barbiturates Screen Neg NEGATIVE Urine Phencyclidine Screen Neg NEGATIVE Urine Amphetamines Screen Neg NEGATIVE Urine Benzodiazepines Screen Neg NEGATIVE Urine Cocaine Screen Neg NEGATIVE Urine Cannabinoids Screen Neg NEGATIVE POC Glucose 159 H 70-106 mg/dl White Blood Count 9.3 4.4-10.8 10^3/uL Red Blood Count 5.06 4.5-5.90 10^6/uL Hemoglobin 13.6 13.5-17.5 g/dL Hematocrit 40.8 #L 41.0-53.0 % Mean Corpuscular Volume 80.5 80.0-100.0 fL Mean Corpuscular Hemoglobin 26.9 L 28.0-32.0 pg Mean Corpuscular Hemoglobin Concent 33.4 32.0-36.0 g/dL Red Cell Distribution Width 16.9 H 11.8-14.3 % Platelet Count 150 140-450 10^3/uL Mean Platelet Volume 6.7 L 6.9-10.8 fL Neutrophils (%) (Auto) 70.9 37.0-80.0 % Lymphocytes (%) (Auto) 17.2 10.0-50.0 % Monocytes (%) (Auto) 11.0 0.0-12.0 % Eosinophils (%) (Auto) 0.3 0.0-7.0 % Basophils (%) (Auto) 0.6 0.0-2.0 % Neutrophils # (Auto) 6.6 1.6-8.6 10 ^3/uL Lymphocytes # (Auto) 1.6 0.4-5.4 10 ^3/uL Monocytes # (Auto) 1.0 0-1.3 10 ^3/uL Eosinophils # (Auto) 0 0-0.8 10 ^3/uL Basophils # (Auto) 0.1 0-0.2 10 ^3/uL Nucleated Red Blood Cells 0.1 % Prothrombin Time 11.6 9.3-11.8 sec Prothrombin Time INR 1.11 0.9-1.15 Sodium Level 136 # 136-145 mmol/L Potassium Level 3.9 3.5-5.1 mmol/L Chloride Level 101 98-107 mmol/L Carbon Dioxide Level 26 20-31 mmol/L Anion Gap 9 5-15 Blood Urea Nitrogen 20 9-23 mg/dL Creatinine 1.23 0.700-1.30 mg/dL Glomerular Filtration Rate Calc 68 >90 mL/min BUN/Creatinine Ratio 16.3 10.0-20.0 Serum Glucose 189 H 74-106 mg/dL Calcium Level 9.3 8.7-10.4 mg/dL Test 09/18/25 20:25 09/18/25 17:00 09/18/25 15:13 09/18/25 14:09 Range/Units Influenza Type A Antigen Negative Negative Influenza Type B Antigen Negative Negative SARS-CoV-2 Antigen (Rapid) Negative NEGATIVE Troponin I High Sensitivity 184 *H </=54 ng/L Total Bilirubin 0.8 0.2-1.0 mg/dL Direct Bilirubin 0.2 <0.3 mg/dL Aspartate Amino Transferase (AST) 39 13-40 U/L Alanine Aminotransferase (ALT) 44 H 7-40 U/L Alkaline Phosphatase 107 46-116 U/L Total Protein 7.6 5.7-8.2 g/dL Albumin 4.8 3.2-4.8 g/dL D-Dimer, Quantitative 28.17 H 0.0-0.49 mg/L FEU B-Type Natriuretic Peptide 23.51 0-100 pg/mL Assessment Bilateral pulmonary emboli. Left lower extremity DVT. Hypertension. Dyslipidemia. Insulin-dependent diabetes mellitus. Legally blindness. Obesity. Plan/Recommendation I agree with your ongoing assessment and care of plan. Patient has been seen by Jennie Alvarez NP on my behalf, her and I discussed the plan with the patient. CT angio chest with contrast: Bilateral pulmonary emboli with involvement of the right distal main pulmonary artery extending through the right interlobar artery. No evidence of elevated right heart pressures. Bilateral lower extremity DVT: Occlusive deep vein thrombosis within the left popliteal vein. 12 lead electrocardiogram x 1: Sinus rhythm with premature atrial contractions and nonspecific T-wave inversion to lateral leads. Troponin levels peaked at 200s ng/L. TTE pending. Continue heparin drip per pharmacy protocol. Continue radiologist recommendations for possible thrombectomy. Preliminary transthoracic echocardiogram revealed a preserved LV function with no evidence of right heart strain. Post-interventional procedures, transition to DOAC therapy with Eliquis 10 mg BID for the first 7 days then 5 mg BID for at least 6 months. Follow-up in the outpatient setting with a primary manager administration within 3-4 weeks post-discharge. Encouraged on ambulation and to increase activity. There is no further cardiac workup indicated at this time. Additional plan as per the hospital course. Plan discussed with: Patient NYHA Physical activity limitations: NA Date of Service: Sep 19, 2025 Billing Provider: CLINT HUNT MD Cardiology Common Codes: [id number] INP/OBS CARE (High) Cardiology Consultation Codes: 90467-[id number] CONSULT <45MIN CLINT HUNT MD Sep 19, 2025 14:20
[2025-09-20] VITALS (9 sets, daily range): BP systolic 108–150; BP diastolic 64–82; PULSE 67–84; RESP 16–20; TEMP 97.6–98.1; O2SAT 94–99
[2025-09-20] MEDS: HEPARIN DRIP/D5W 100UNITS/ML 250 ML IV SCH ×2 (00:40→09:31)
[2025-09-20 05:40] LABS: Hematocrit 41.2 % (41.0-53.0); Hemoglobin 14.4 g/dL (13.5-17.5); Mean Corpuscular Hemoglobin 28.0 pg (28.0-32.0); Mean Corpuscular Volume 80.1 fL (80.0-100.0); Nucleated Red Blood Cells % 0.1 %
[2025-09-20 05:45] LABS: Chloride 100 mmol/L (98-107); Potassium 3.8 mmol/L (3.5-5.1); Sodium 138 mmol/L (136-145)
[2025-09-20 05:46] LABS: Anion Gap 10 (5-15); Calcium 9.9 mg/dL (8.7-10.4); Carbon Dioxide 28 mmol/L (20-31)
[2025-09-20 05:51] LABS: BUN/Creatinine Ratio 14.7 (10.0-20.0); Blood Urea Nitrogen 21 mg/dL (9-23)
[2025-09-20 05:57] LABS: Glucose 74 mg/dL (74-106)
--- NOTE | 2025-09-20 08:24 | CONS ---
Pharmacy Clinical Information: HEPARIN PROTOCOL APTT 97.2 AT 04:40 ON 09/20/25 HOLD HEPARIN DRIP FOR 1 HOUR STARTING 08:30 09/20/25 RESTART HEPARIN AT RATE 800 UNITS/HR OR 8 ML/HR AT 9:30 09/20/25 NEXT APTT LEVEL SCHEDULED 15:30 09/20/25 CHUCHO FRIAS READ BACK AND CONFIRMED PER RX PROTOCOL BIJAN MONTERO PHARMACIST Sep 20, 2025 08:24
--- NOTE | 2025-09-20 09:48 | DVHSR ---
APPROVED REPORT EXAM: Two-dimensional and M-mode echocardiogram with Doppler and color Doppler. Blood Pressure: 106/64 mmHg INDICATION SOB, H/O STU, HTN RISK FACTORS Height: 70, Weight: 242 DIMENSIONS LVDd 4.0 (3.8-5.7cm) LA (2D) 4.0 (1.9-4.0cm) Aortic Root 3.3 (2.0-3.7cm) LVDs 2.6 (2.5-4.0cm) LA (MM) (1.9-4.0cm) Aortic Cusp Exc 2.0 (1.5-2.0cm) EF (%) 64.0 (55-70%) Rt. Atrium 4.6 (1.9-4.0cm) Asc. Aorta cm Mitral Valve Mitral Mitral Stenosis E wave 0.58m/s MV Mean GR. mmHg A wave 0.80m/s MV Peak GR. 28mmHg E/A ratio 0.7 2D MVA cm2 DECEL Time 329ms PRESS 1/2 Time 112ms IVRT ms Dop MVA 1.97cm2 Aortic Valve Aortic Valve Aortic Stenosis V1 1.30m/s AO Mean GR. 5mmHg V2 1.57m/s AO Peak GR. 10mmHg LVOT Diameter 1.8 (1.8-2.4cm) Doppler KERRIE 2.11cm2 Pulmonic Valve V2 0.96m/s Other Information Technically limited study due to body habitus. Conclusion MILD LVH AND MILD LV DIASTOLIC DYSFUNCTION LV EF IS 65% NORMAL VALVES NO EFFUSION
--- NOTE | 2025-09-20 12:32 | CONS ---
Pharmacy Clinical Information: HEPARIN PER PHARMACY SPOKE TO CHUCHO Mendenhall REGARDING heparin dose change Current dose: 1100 units/hr CURRENT aPTT: 97.2 on 09/20/2025 at 04:40 Hold heparin 1 hr heparin was held at 08:30 on 09/20/2025 decrease heparin drip rate (new dose): 800 units/hr Date and time new dose started: 09/20/2025 at 09:31 Next aPTT: 09/20/2025 at 15:30 CHUCHO Mendenhall READ BACK NEW DOSE: 800 UNITS/HR SILVIO Penny Sep 20, 2025 12:32
[2025-09-20] MEDS ORDERED: APIX5TAB PO (15:19)
[2025-09-20] MEDS ORDERED: PEN400T PO (15:36)
[2025-09-20] MEDS: APIXABAN 5 MG TAB PO ONE (15:45)
[2025-09-20 15:50] LABS: INR 0.97 (0.9-1.15); Partial Thromboplastin Time 31.7 SEC (24.5-34.5); Prothrombin Time 10.3 sec (9.3-11.8)
--- NOTE | 2025-09-20 19:56 | DVHDSRES ---
Discharge Summary Date of Admission Resident Creating Document: GARETT VILLA RESIDENT Sep 18, 2025 at 16:18 Date of Discharge: Sep 20, 2025 Admitting Diagnosis Acute chest pain, to rule out PE Labs/Diagnostic Data: Laboratory Results Test 09/20/25 15:05 09/20/25 04:40 09/19/25 06:30 09/19/25 05:55 Prothrombin Time 10.3 sec (9.3-11.8) Prothrombin Time INR 0.97 (0.9-1.15) Activated Partial Thromboplast Time 31.7 SEC (24.5-34.5) White Blood Count 9.2 10^3/uL (4.4-10.8) Red Blood Count 5.14 10^6/uL (4.5-5.90) Hemoglobin 14.4 g/dL (13.5-17.5) Hematocrit 41.2 % (41.0-53.0) Mean Corpuscular Volume 80.1 fL (80.0-100.0) Mean Corpuscular Hemoglobin 28.0 pg (28.0-32.0) Mean Corpuscular Hemoglobin Concent 34.9 g/dL (32.0-36.0) Red Cell Distribution Width 16.9 % (11.8-14.3) Platelet Count 171 10^3/uL (140-450) Mean Platelet Volume 7.1 fL (6.9-10.8) Neutrophils (%) (Auto) 62.7 % (37.0-80.0) Lymphocytes (%) (Auto) 24.4 % (10.0-50.0) Monocytes (%) (Auto) 12.2 % (0.0-12.0) Eosinophils (%) (Auto) 0.3 % (0.0-7.0) Basophils (%) (Auto) 0.4 % (0.0-2.0) Neutrophils # (Auto) 5.7 10 ^3/uL (1.6-8.6) Lymphocytes # (Auto) 2.2 10 ^3/uL (0.4-5.4) Monocytes # (Auto) 1.1 10 ^3/uL (0-1.3) Eosinophils # (Auto) 0 10 ^3/uL (0-0.8) Basophils # (Auto) 0 10 ^3/uL (0-0.2) Nucleated Red Blood Cells 0.1 % Sodium Level 138 mmol/L (136-145) Potassium Level 3.8 mmol/L (3.5-5.1) Chloride Level 100 mmol/L (98-107) Carbon Dioxide Level 28 mmol/L (20-31) Anion Gap 10 (5-15) Blood Urea Nitrogen 21 mg/dL (9-23) Creatinine 1.43 mg/dL (0.700-1.30) Glomerular Filtration Rate Calc 56 mL/min (>90) BUN/Creatinine Ratio 14.7 (10.0-20.0) Serum Glucose 74 mg/dL (74-106) Calcium Level 9.9 mg/dL (8.7-10.4) Urine Color Light-yellow (Yellow) Urine Clarity Clear (Clear) Urine pH 6.0 (5.0-9.0) Urine Specific [place] 1.017 (1.001-1.035) Urine Protein Negative (Negative) Urine Ketones Negative (Negative) Urine Blood 1+ /uL (Negative) Urine Nitrite Negative (Negative) Urine Bilirubin Negative (Negative) Urine Urobilinogen Normal mg/dL (Negative) Urine Leukocyte Esterase Negative /uL (Negative) Urine RBC 3 /hpf (0 - 3) Urine Microscopic WBC < 1 /HPF (0-3) Urine Squamous Epithelial Cells None seen /hpf (<5) Urine Bacteria None seen /hpf (None Seen) Urine Creatinine 60.76 mg/dL (30.0-125.0) Urine Protein/Creatinine Ratio 0.10 Urine Sodium 61 mmol/L (40-220) Urine Glucose 4+ mg/dL (Normal) Urine Total Protein 6.3 mg/dL (1-14) Urine Opiates Screen Neg (NEGATIVE) Urine Fentanyl Screen Neg (NEGATIVE) Urine Barbiturates Screen Neg (NEGATIVE) Urine Phencyclidine Screen Neg (NEGATIVE) Urine Amphetamines Screen Neg (NEGATIVE) Urine Benzodiazepines Screen Neg (NEGATIVE) Urine Cocaine Screen Neg (NEGATIVE) Urine Cannabinoids Screen Neg (NEGATIVE) POC Glucose 159 mg/dl (70-106) Test 09/18/25 20:25 09/18/25 17:00 09/18/25 15:13 09/18/25 14:09 Influenza Type A Antigen Negative (Negative) Influenza Type B Antigen Negative (Negative) SARS-CoV-2 Antigen (Rapid) Negative (NEGATIVE) Troponin I High Sensitivity 184 ng/L (</=54) Total Bilirubin 0.8 mg/dL (0.2-1.0) Direct Bilirubin 0.2 mg/dL (<0.3) Aspartate Amino Transferase (AST) 39 U/L (13-40) Alanine Aminotransferase (ALT) 44 U/L (7-40) Alkaline Phosphatase 107 U/L (46-116) Total Protein 7.6 g/dL (5.7-8.2) Albumin 4.8 g/dL (3.2-4.8) D-Dimer, Quantitative 28.17 mg/L FEU (0.0-0.49) B-Type Natriuretic Peptide 23.51 pg/mL (0-100) Other Laboratory Tests 09/20/25 04:40 Brief Hx & Hospital Course: Maximo Hewitt is a 59-year old male past medical history of hypertension, CAD, obstructive sleep apnea on CPAP, legal blindness, peripheral neuropathy, insulin-dependent type 2 diabetes mellitus and herpes presented to the ED with a chief complaint of shortness of breath. The patient reported he had an episode of shortness of breath 2 days before admission when he was getting dressed, followed by 2 more episodes of sudden shortness of breath lasting 1-2 minutes each. He denied any chest pain or chest tightness, but reported having palpitations along with the shortness of breath. The patient mentions he walks on the treadmill hour at 2.5 mph every day without any difficulty breathing . D- Dimer on admission was 28.17. Tropes were 212, 183, 184. CT angiography revealed bilateral pulmonary emboli and DVT scan revealed DVT in left popliteal vein. The patient was started on heparin drip, which was discontinued today. The patient was given 1 dose of 10 mg p.o. Eliquis. Patient was weaned off the oxygen and did not complain of any shortness of breath. Echo revealed LVEF 65% with mild LVH and mild LV diastolic dysfunction. The patient did not require thrombectomy as there was no right heart strain on echo. The patient was discharged home in a stable condition on Eliquis 10 mg b.i.d. for 7 days, followed by 5 mg Eliquis b.i.d. for 6 months. All medications and recommendations were thoroughly explained to the patient and he demonstrated understanding of the same. He was recommended to follow-up in discharge Clinic within 1 week, with PCP within 1-2 weeks and with Cardiology within 3-4 weeks. Past medical history:hypertension, CAD, obstructive sleep apnea on CPAP, legal blindness, peripheral neuropathy, insulin-dependent type 2 diabetes mellitus and herpes Past surgical history: Surgery on both eyes Social & Personal history: Lives at home with family, denies smoking, drug use, occasional alcohol use Allergies: No known allergies Physical examination on day of discharge General Appearance: Cooperative. Well developed. Well nourished. NAD Head Exam: Normal inspection Neck Exam: Normal inspection. Non-tender. Normal alignment Pulmonary/Respiratory: Chest non-tender. Clear bilateral breath sounds, no crackles, no wheezing. Cardiovascular/Chest: Regular rate and rhythm. No murmurs. No JVD. Peripheral Pulses: 2+ Radial (R). 2+ Radial (L). 2+ Pedal (R). 2+ Pedal (L) Abdominal Exam: Normal bowel sounds. Soft. normal abdomen, no visible veins, Nontender. No hepatospenomegaly. No masses Ankle Exam: Negative ankle edema Lower extremities: bilateral 1+ lower extremity edema Neuro/Mental Status: A&O x4. Coherent. Thoughts/Psych: Normal thought pattern. Appropriate mood and affect. Good judgement and insight Skin Exam: Normal inspection. Normal color. Warm. Dry Operations or Procedures 1.PROCEDURE(s): CXR1 - CHEST XRAY 1 VIEW REASON: SOB/Palpitations ORDER NUMBER(s): [id number], ACCESSION NUMBER(s): [id number] CHEST RADIOGRAPH Indication: SOB/Palpitations Technique: Single frontal view of the chest was obtained Comparison: None FINDINGS: Lines and Tubes: None Lungs: No focal consolidation. Pleura: No effusion. No pneumothorax. Cardiomediastinal contours: Unremarkable Bones: No acute osseous abnormality. IMPRESSION: No acute cardiopulmonary disease. 2.PROCEDURE(s): BLDVT - BiLat Lower DVT REASON: lower ext swelling L>R ORDER NUMBER(s): [id number], ACCESSION NUMBER(s): [id number] Technique: Real-time ultrasound imaging, with color Doppler and compression of the bilateral common femoral vein, femoral vein, greater saphenous vein, and popliteal vein. Indication: lower ext swelling L>R Comparison: None Findings: In the left lower extremity, the left common femoral superficial femoral veins demonstrate color flow and compressibility. The left popliteal vein is noncompressible and contains occlusive thrombus. There is normal compressibility and flow augmentation in all of the right lower extremity imaged deep veins. There are no filling defects in the right lower extremity. Impression: Occlusive deep vein thrombosis within the left popliteal vein. Findings were communicated to Dr. Vallejo by the scanning technologist at 5:57 p.m. 3.PROCEDURE(s): CTACH - CT ANGIO CHEST CONTRAST REASON: Wells score 3, SOB, highd-dim, NSTEMI , suspicous for PE ORDER NUMBER(s): [id number], ACCESSION NUMBER(s): [id number] EXAM: CT CT ANGIO CHEST CONTRAST HISTORY: Wells score 3, SOB, highd-dim, NSTEMI , suspicous for PE TECHNIQUE: CT angiogram was performed. CT scans at this facility use dose modulation, iterative reconstruction, and/or weight based dosing when appropriate to reduce radiation dose to as low as reasonably achievable. Coronal and sagittal reformations and maximum intensity projection images were created from the transaxial source data by the cytology technologist and workstation, as well as 3-D volume rendered images with MIPs. COMPARISON: XY CHEST XRAY 1 VIEW on DOS: 09/18/25 FINDINGS: [LOWER NECK]: Unremarkable [LYMPH NODES/MEDIASTINUM]: No abnormal lymph nodes by CT size criteria [CARDIOVASCULAR]: Normal cardiac size. No pericardial effusion. No aneurysmal dilatation of the great vessels. Coronary artery calcifications. [PULMONARY ARTERIES]: Pulmonary emboli involving the right distal main pulmonary artery extending through the right interlobar artery. Propagating through the right posterior segmental to subsegmental pulmonary arteries. Additional involvement of the left upper apical segmental artery and likely subsegmental arteries. Additional involvement of the left lower lobe segmental to subsegmental pulmonary arteries. Normal caliber of the main pulmonary artery. No evidence of elevated right heart pressures. no ventricular heart strain [UPPER ABDOMEN]: Unremarkable. [MUSCULOSKELETAL]: No acute fracture or aggressive focal osseous lesion. Multilevel degenerative change of the visualized spine. [CHEST WALL]: Unremarkable. [LUNG PARENCHYMA/PLEURAL SPACE]: No consolidation, suspicious focal airspace opacity, or suspicious nodules. No pleural effusion or pneumothorax. IMPRESSION: 1. Bilateral pulmonary emboli with involvement of the right distal main pulmonary artery extending through the right interlobar artery. 2. No evidence of elevated right heart pressures. Condition at Discharge: Fair Final Diagnosis/Problems List Acute hypoxic respiratory failure Right main Pulmonary artery embolism DVT in left popliteal vein NSTEMI likely type 2 from demand ischemia MI on CKD likely due to VMN Hypertensive heart disease with diastolic heart failure, EF 65% Chronic Peripheral artery disease Insulin dependent Type 2 diabetes mellitus Obstructive sleep apnea Discharge Disposition: Home Discharge Instruct/Medications Diet: Consistent carbohydrate, Cardiac 2g Na,low cholest, Renal Activity: No Restrictions, As Tolerated Follow Up/Referral: follow up in dc clinic in 1 week follow up with PCP in 1-2 weeks Scheduled Amlodipine Besylate (Amlodipine Besylate), 1 TAB PO DAILY, (Reported) Apixaban Base (Eliquis), 5 MG PO BID Apixaban Base (Eliquis), 10 MG PO BID Aspirin (Aspir-Low), 81 MG PO DAILY, (Reported) Atorvastatin Calcium (Atorvastatin Calcium), 1 TAB PO DAILY, (Reported) Hctz (Hydrochlorothiazide), 1 TAB PO DAILY, (Reported) Lisinopril (Lisinopril), 1 TAB PO DAILY, (Reported) Discontinued Medications Acyclovir (Acyclovir), 1 TAB PO TID, (Reported) Metoprolol Tartrate (Lopressor), 1 TAB PO DAILY, (Reported) Discharge Statement: "Patient was advised to return to the ER or call 911 if any headaches, dizziness, shortness of breath, chest pain, abdominal pain, bleeding, fevers, or worsening of medical condition. Patient was counseled about treatment plan, medications, possible side effects, patientverbalized understanding. All questions were answered to the best of my ability. This discharge took greater then 30 minutes in planning, reviewing documentation, counseling the patient, and discussing with other team members." ASSESSMENT ASSESSMENT Assessment acute pulmonary embolism Date of Service: Sep 20, 2025 Billing Provider: CLAUDY MONTERO MD Common Visit Codes: [id number]/OBS DISCH DAY >30min GARETT VILLA RESIDENT Sep 20, 2025 19:55 CLAUDY MONTERO MD Sep 20, 2025 22:26
--- NOTE | 2025-09-20 21:13 | DVHPN2 ---
Progress Note - Dictate Date Seen: Sep 20, 2025 Medical Necessity Reason Pt with a Central, PICC or Fol: No Subjective Patient was seen and evaluated in follow up. Patient is on heparin drip, will be transitioned to Eliquis. Echocardiogram showed an EF of 65%. Telemetry reviewed. vital signs Vital Sign Date Time Temp Pulse Resp B/P (MAP) Pulse Ox O2 Delivery O2 Flow Rate FiO2 09/20/25 19:50 97.6 82 18 96 09/20/25 16:30 126/74 (91) 09/20/25 08:00 Nasal Cannula* 2 28 Total Intake and Output 09/19/25 09/19/25 09/20/25 15:00 23:00 07:00 Intake Total 825 ml 500 ml Output Total 520 ml Balance 825 ml -20 ml medications Current Medications Medications Dose Ordered Sig/Antonio Route Start Time Stop Time Status Last Admin Dose Admin Nitroglycerin 0.4 mg Q5MINP PRN SL 09/18/25 16:30 Morphine Sulfate 2 mg Q30M PRN IV 09/18/25 16:30 Levalbuterol HCl 0.625 mg Q6HP PRN NEB 09/18/25 16:30 Ipratropium [place] 0.5 mg Q6HPRN PRN NEB 09/18/25 16:30 Aspirin 81 mg DAILY PO 09/19/25 10:00 09/20/25 09:46 81 MG Pentoxifylline 400 mg TID PO 09/18/25 22:00 09/20/25 13:59 400 MG Lisinopril 30 mg DAILY PO 09/19/25 10:00 09/20/25 09:41 30 MG Hydrochlorothiazide 25 mg DAILY PO 09/19/25 10:00 09/20/25 09:42 25 MG Amlodipine Besylate 5 mg HS PO 09/18/25 22:00 09/19/25 21:07 5 MG Diagnostic Test (Pha) 1 strip ACHS 09/18/25 17:00 09/20/25 11:30 1 STRIP Insulin Human Regular ACHS SC 09/18/25 17:00 Dextrose 50 ml UD PRN IV 09/18/25 16:30 Atorvastatin Calcium 40 mg HS PO 09/18/25 22:00 09/19/25 21:05 40 MG Apixaban 10 mg BID PO 09/20/25 22:00 09/27/25 21:59 Apixaban 5 mg BID PO 09/27/25 22:00 objective GENERAL: Alert and oriented x 3. No acute distress. EYES: PERRL, EOMI. Anicteric. HENT: Moist mucous membranes. LUNGS: Clear to auscultation bilaterally. CARDIOVASCULAR: Regular rate and rhythm. ABDOMEN: Soft, nontender and nondistended. EXTREMITIES: No edema. NEUROLOGIC: No focal neurological deficits. SKIN: Warm, dry. laboratory and microbiology Laboratory Tests 09/20/25 04:40 Test 09/20/25 04:40 Range/Units Serum Glucose 74 # 74-106 mg/dL Problem List Bilateral pulmonary emboli. Left lower extremity DVT. Hypertension. Dyslipidemia. Insulin-dependent diabetes mellitus. Legally blindness. Obesity. Assessment/Plan Continued all current supportive medical care. Amlodipine, Lisinopril. Eliquis. Aspirin, Lipitor. Morphine and Lorida for pain management. Additional plan as per the hospital course. Plan discussed with: Patient CLINT HUNT MD Sep 20, 2025 20:21
[2025-09-20] MEDS ORDERED: APIXABAN 5 MG TAB PO SCH (22:00)
[2025-09-27] MEDS ORDERED: APIXABAN 5 MG TAB PO SCH (22:00)
== END 2025-09-20 21:05 | disposition home or self-care (01) | DRG 682 ==
LOC: ER 12:15 → OVERFLOW 16:18 → TELE-WESTW 23:54
PROVIDERS: ADMIT Internal Medicine; ATTEND Internal Medicine
DX: N17.0 Acute kidney failure with tubular necrosis (principal); I21.A1 Myocardial infarction type 2; I26.99 Other pulmonary embolism without acute cor pulmonale; J96.01 Acute respiratory failure with hypoxia; I82.432 Acute embolism and thrombosis of left popliteal vein; Z79.01 Long term (current) use of anticoagulants; I13.0 Hypertensive heart and chronic kidney disease with heart failure and stage 1 through stage 4 chronic kidney disease, or unspecified chronic kidney disease; E66.9 Obesity, unspecified; E11.51 Type 2 diabetes mellitus with diabetic peripheral angiopathy without gangrene; N18.9 Chronic kidney disease, unspecified; I50.32 Chronic diastolic (congestive) heart failure; Z20.822 Contact with and (suspected) exposure to COVID-19; G47.33 Obstructive sleep apnea (adult) (pediatric); E11.42 Type 2 diabetes mellitus with diabetic polyneuropathy; I25.10 Atherosclerotic heart disease of native coronary artery without angina pectoris; E78.5 Hyperlipidemia, unspecified; H54.8 Legal blindness, as defined in USA; I49.1 Atrial premature depolarization; Z68.34 Body mass index [BMI] 34.0-34.9, adult; Z79.4 Long term (current) use of insulin; Z79.899 Other long term (current) drug therapy
CPT/HCPCS: 36415; 71045; 71275; 80048; 80076; 80307; 81001; 82570; 82962; 83880; 84156; 84300; 84484; 85025; 85379; 85610; 85730; 87426; 87804; 93005; 93306; 93970; 96365; G0378; J1815